=== PATIENT | male | born 2005 | race Caucasian/White ===

== ENCOUNTER 2025-08-30 14:30 | Emergency (ER) | payer OTHER | END 2025-08-30 15:15 | disposition home or self-care (01) | LOC: LL.ED 14:30 | DX: S69.90XA Unspecified injury of unspecified wrist, hand and finger(s), initial encounter (principal); S69.92XA Unspecified injury of left wrist, hand and finger(s), initial encounter; W22.09XA Striking against other stationary object, initial encounter | CPT/HCPCS: 73130-50; 99283 ==